=== PATIENT | female | born 1950 | race Caucasian/White ===

== ENCOUNTER → 2016-10-31 | Outpatient (CLI) | payer OTHER ==
[~2016-10-31] MED LIST: BIOT1CAP8 PO; ESTR1 PO; ESTR1TAB2 PO; FEXO1TAB46 PO; HYDR-5688 PO; NAPR220T PO; SERT1TAB71 PO
== END | disposition home or self-care (01) ==
LOC: C.PAPS 10:54
PROVIDERS: ATTEND Obstetrics & Gynecology
DX: Z12.4 Encounter for screening for malignant neoplasm of cervix (principal)

== ENCOUNTER → 2016-11-03 | Outpatient (CLI) | payer OTHER ==
--- NOTE | 2016-11-03 12:24 | DIAGNOSTIC IMAGING REPORT ---
CHEST 2 VIEWS ROUTINE CLINICAL HISTORY: Cough. COMPARISON STUDY: Chest radiograph and chest CT January 29, 2014. FINDINGS: Mild elevation of the right hemidiaphragm is unchanged. There is no pneumothorax or pleural effusion. Minimal left basilar opacity favors atelectasis. Cardiac size is normal. Mediastinal contours are normal. There is no evidence of pulmonary edema. IMPRESSION: 1. No acute cardiopulmonary findings. 2. Mild left basilar opacity suggestive of atelectasis. Electronically signed by: Erasto Natarajan M.D. 11/03/2016 12:22 PM Dictated Date/Time: 11/03/2016 12:22 PM
== END | disposition home or self-care (01) ==
LOC: C.RAD1850 12:00
PROVIDERS: ATTEND Nurse Practitioner Adult Health
DX: R05 Cough (principal)

== ENCOUNTER → 2016-11-30 | Outpatient (CLI) | payer OTHER ==
--- NOTE | 2016-12-01 09:07 | MAMMOGRAPHY REPORT ---
BILATERAL DIGITAL SCREENING MAMMOGRAM WITH CAD: 11/30/2016 CLINICAL HISTORY: Routine screening. Patient has no complaints. TECHNIQUE: Current study was also evaluated with a Computer Aided Detection (CAD) system. Bilateral CC and MLO views were obtained. COMPARISON: Comparison is made to exams dated: 11/05/2008, 10/30/2007, 10/30/2007, and 10/22/2007. Out side prior mammograms dated 08/13/2015, 07/25/2014, 07/22/2013, 03/29/2012, breast ultrasound dated 11/2015. BREAST COMPOSITION: There are scattered areas of fibroglandular density in both breasts. FINDINGS: No suspicious masses, calcifications, or areas of architectural distortion are noted in ei ther breast. There has been no significant interval change compared to prior exams. Small bilateral benign-appearing masses are again noted, which are considered benign given the multiplicity and bilat erality and likely represent cysts, with multiple cysts seen on a prior outside 2015 ultrasound exam. IMPRESSION: ACR BI-RADS CATEGORY 2: BENIGN There is no mammographic evidence of malignancy. A 1 year screening mammogram is recommended. The pa tient will receive written notification of the results. Approximately 10% of breast cancers are not detected with mammography. A negative mammographic report should not delay biopsy if a clinically suggestive mass is present. Ashlee Alaniz M.D. /:11/30/2016 16:31:11 Weapons Electrical Engineering Officer: Charmaine MTZ)(Jo-Ann)(BD), [facility] letter sent: Normal 1/2 BI-RADS Code: ACR BI-RADS Category 2: Benign
== END | disposition home or self-care (01) ==
LOC: C.MAMM 14:45
PROVIDERS: ATTEND Obstetrics & Gynecology
DX: Z12.31 Encounter for screening mammogram for malignant neoplasm of breast (principal)

== ENCOUNTER → 2016-12-19 | Outpatient (CLI) | payer OTHER ==
--- NOTE | 2017-02-21 20:12 | PROGRESS NOTE ---
DATE: 02/21/2017 SUBJECTIVE: She is improving, stable. 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 CHIEF COMPLAINT: Back pain, buttock, lower extremity difficulty. WORKING DIAGNOSIS: Spondylosis, improved, stable, better motion, decreased pain. ____ the strength training exercise has helped her a great deal. The physical therapy with the electronic stimulation somewhat back fired ____. There are no neurological deficits. ____ lumbar spond, myelopathy. DISPOSITION: Includes, continue exercise strength training. Followup examination done in the office p.r.n. She can return to work.
== END | disposition home or self-care (01) ==
LOC: C.LAB 11:50
PROVIDERS: ATTEND Family Medicine
DX: R30.0 Dysuria (principal)

== ENCOUNTER → 2017-06-03 | Outpatient (CLI) | payer OTHER, MEDICARE ==
[2017-06-03 09:01] LABS: BASO % 0.5 %; BASO ABS # 0.03 K/uL (0-0.2); COMPLETE YES; EOS % 3.3 %; IG% 0.2 %; LYMPH % 32.9 %; LYMPH ABS # 1.97 K/uL (1.2-3.4); MEAN CELL VOLUME 91.7 fL (80-100); MEAN CORPUSCULAR HEMOGLOBIN 30.5 pg (25-34); MEAN CORPUSCULAR HGB CONC 33.3 g/dl (32-36); MEAN PLATELET VOLUME 10.2 fL (7.4-10.4); MONO % 6.2 %; NEUT % 56.9 %; PLATELET COUNT 268 K/uL (130-400); RED BLOOD COUNT 4.36 M/uL (4.2-5.4); WHITE BLOOD COUNT 5.99 K/uL (4.8-10.8)
[2017-06-03 09:27] LABS: CHOLESTEROL/HDL RATIO 4.7
== END | disposition home or self-care (01) ==
LOC: C.LAB 07:56
PROVIDERS: ATTEND Family Medicine
DX: Z13.1 Encounter for screening for diabetes mellitus (principal); Z13.220 Encounter for screening for lipoid disorders; K62.5 Hemorrhage of anus and rectum

== ENCOUNTER → 2018-01-11 | Outpatient (CLI) | payer OTHER, MEDICARE ==
[~2018-01-11] MED LIST changes: +ACET1TAB84 PO; +DICL50TA3 PO; -ESTR1TAB2 PO; -HYDR-5688 PO; +LISI-461 PO; +MULT-190 PO; -NAPR220T PO; -SERT1TAB71 PO; +TRIA1SPR4 INTNAS; +VNTHFA/IN INH
--- NOTE | 2018-01-12 14:35 | MAMMOGRAPHY REPORT ---
BILATERAL DIGITAL SCREENING MAMMOGRAM TOMOSYNTHESIS WITH CAD: 01/11/2018 CLINICAL HISTORY: Routine screening. Patient has no complaints. TECHNIQUE: The study was acquired using full field digital technology and interpreted from soft copy. Breast tomosynthesis in addition to standard 2D mammography was performed. Current study was also ev aluated with a Computer Aided Detection (CAD) system. COMPARISON: Comparison is made to exams dated: 11/30/2016 mammogram - [facility], , 10/30/2007, 10/30/2007, and 10/22/2007. BREAST COMPOSITION: There are scattered areas of fibroglandular density in both breasts. FINDINGS: There is a nodular 6 mm asymmetry seen within the right lateral breast middle depth on the cc view, n ot seen on the MLO view although felt to project more inferiorly based on the tomosynthesis localizer prior. Recommend spot compression tomosynthesis views and possible breast ultrasound for further ev aluation. The remainder of both breasts demonstrate numerous small masses bilaterally, which have fluctuated co mpared to prior mammograms and likely represent cysts, with cysts seen on a prior 2016 ultrasound exa m. No suspicious calcifications or areas of architectural distortion are noted. IMPRESSION: ACR BI-RADS CATEGORY 0: INCOMPLETE EVALUATION: NEED ADDITIONAL IMAGING EVALUATION Right lateral breast asymmetry, for which additional imaging evaluation is recommended. The patient will be called to schedule an appointment. Some breast cancers are not detected with mammography. A negative mammographic report should not enedelia y biopsy if a clinically suggestive mass is present. Ashlee Alaniz M.D. ah/:01/11/2018 16:45:45 Warp Knitter Helper: Cassandra Barry, [facility] letter sent: Addl Imaging 0 BI-RADS Code: ACR BI-RADS Category 0: Incomplete Evaluation: Need Additional Imaging Evaluation
== END | disposition home or self-care (01) ==
LOC: C.MAMM 14:51
PROVIDERS: ATTEND Obstetrics & Gynecology
DX: Z12.31 Encounter for screening mammogram for malignant neoplasm of breast (principal); N64.89 Other specified disorders of breast

== ENCOUNTER → 2018-01-19 | Outpatient (CLI) | payer OTHER, MEDICARE ==
--- NOTE | 2018-01-19 15:28 | MAMMOGRAPHY REPORT ---
UNILATERAL RIGHT DIGITAL DIAGNOSTIC MAMMOGRAM TOMOSYNTHESIS AND RIGHT ULTRASOUND: 01/19/2018 CLINICAL HISTORY: Callback from screening mammogram for right breast asymmetry. TECHNIQUE: The study was acquired using full field digital technology and interpreted from soft copy. Breast tomosynthesis in addition to standard 2D mammography was performed. Spot compression right C C and MLO 2D and tomosynthesis images were obtained. COMPARISON: Comparison is made to exams dated: 01/11/2018 mammogram, 11/30/2016 mammogram - [facility], 11/05/2008, 10/30/2007, 10/30/2007, and 10/22/2007. BREAST COMPOSITION: There are scattered areas of fibroglandular density in right breast. FINDINGS: Spot compression views demonstrate a persistent low density nodular 6 mm asymmetry seen within the le ft lateral breast anteriorly, thought to project at approximately 9:00 based on the MLO view. Jaime us other small masses are noted on the additional views, which appear similar to prior exams and like ly represent cysts. Targeted ultrasound was performed of the right lateral breast in the region of the mammographic asymm etry. Innumerable small anechoic cysts were seen during the exam. There is an anechoic circumscribe d 3 x 4 mm mass in the right 9:00 breast, 3 cm from the nipple, consistent with a cyst. Another delaney cent cyst with a thin internal septation measures 6 x 5 mm in the right 8:00 breast, 3 cm from the ni pple. 2 adjacent cyst clusters with thin internal septations are seen within the right 7:00 breast, 2 cm from the nipple, one measuring 8 x 4 mm and the other measuring 3 x 6 mm. One of these masses i s felt to correspond with the mammographic asymmetry. No suspicious solid masses were evident. IMPRESSION: ACR BI-RADS CATEGORY 2: BENIGN, ULTRASOUND ACR BI-RADS CATEGORY 2: BENIGN Numerous small cysts seen within the right lateral breast on ultrasound, one of which is felt to grisel espond with the mammographic asymmetry. There is no mammographic or sonographic evidence of malignan cy. A 1 year screening mammogram is recommended.(01/20/2019) The patient has been verbally notified of the results. Some breast cancers are not detected with mammography. A negative mammographic report should not enedelia y biopsy if a clinically suggestive mass is present. Ashlee Alaniz M.D. ah/:01/19/2018 12:04:25 Breastfeeding Educator: Cassandra Barry, [facility]; Ashlee Alaniz MD, [facility] [address] letter sent: Normal 06/13 OVERALL STUDY BIRADS: 2 Benign
== END | disposition home or self-care (01) ==
LOC: C.MAMM 10:56
PROVIDERS: ATTEND Obstetrics & Gynecology
DX: N64.89 Other specified disorders of breast (principal); N60.11 Diffuse cystic mastopathy of right breast